=== PATIENT | male | born 1995 ===

== ENCOUNTER 2021-04-12 17:34 | Emergency (ER) | payer SELFPAY ==
[~2021-04-12] VITALS: Ht 170.2 cm; Wt 75.4 kg
[2021-04-12] MEDS ORDERED: ACETAMINOPHEN 500 MG TABLET PO ONE (19:30)
[2021-04-12] MEDS ORDERED: KETOROLAC 30 MG/1 ML IM ONE (19:30)
[2021-04-12] MEDS ORDERED: KETOROLAC 30 MG/1 ML ONE (19:34)
[2021-04-12] MEDS ORDERED: ACETAMINOPHEN 500 MG TABLET ONE (19:34)
[2021-04-12 19:37] VITALS: BP 126/68
== END 2021-04-12 21:19 | disposition home or self-care (01) ==
LOC: ED 20:00
DX: S52.502A Unspecified fracture of the lower end of left radius, initial encounter for closed fracture (principal)
CPT/HCPCS: 29125; 73100; 96372; 99283; J1885